=== PATIENT | female | born 1965 | race Caucasian/White ===

== ENCOUNTER 2021-08-06 19:18 | Emergency (ER) | payer OTHER ==
[2021-08-06 19:44] VITALS: BP 128/77; PULSE 78; TEMP 97.9; BMI 30.1
== END 2021-08-06 20:27 | disposition home or self-care (01) ==
LOC: JERFT 19:18 → JER 19:18 → JERFT 20:27
DX: H66.92 Otitis media, unspecified, left ear (principal)
CPT/HCPCS: 99281-25